=== PATIENT | male | born 1965 | race American Indian/Alaskan Native ===

== ENCOUNTER 2017-08-14 17:28 | Emergency (ER) | payer BC ==
[~2017-08-14 17:28] MED LIST: Azithromycin 250 MG Tab ONE; Benzonatate 100 MG Cap ONE
== END 2017-08-14 18:15 | disposition home or self-care (01) ==
LOC: LB.ED 17:28
DX: J40 Bronchitis, not specified as acute or chronic (principal)
CPT/HCPCS: 99283; A9270-GY